=== PATIENT | male | born 1935 | race Caucasian/White ===

== ENCOUNTER 2018-02-09 20:19 | Inpatient (IN) | payer MEDICARE ==
[2018-02-09] MEDS ORDERED: Aspirin 81 mg CHEW TAB* 81 MG TAB.CHEW PO ONE (20:38)
--- NOTE | 2018-02-09 21:12 | RAD ---
Indication: Chest pain. Single frontal view of the chest performed at 2050 hours was reviewed. No prior study is available for comparison. No mediastinal shift is noted. Cardiomegaly is noted. There is likely poor inspiratory effort. Patient is status post transsternal thoracotomy. IMPRESSION: THERE MAY BE SOME POOR INSPIRATORY EFFORT WITHOUT DEFINITE EVIDENCE OF PNEUMONIA. PATIENT IS STATUS POST TRANSSTERNAL THORACOTOMY.
--- NOTE | 2018-02-09 22:07 | RAD ---
Indication: Confusion. CT of the brain was performed without IV contrast. Ventricular structures are midline. No midline shift is noted. There is central and cortical atrophy noted. There is no evidence of intracranial mass or hemorrhage. There is wedge-shaped defect in the left parietal lobe consistent with old infarct. There is no evidence of intracranial mass or hemorrhage. No other high or low density lesions are identified. Mastoid air cells and paranasal sinuses are unremarkable. Patient has had left craniotomy. IMPRESSION: No intracranial mass or hemorrhage. 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
[2018-02-09 22:15] LABS: ABS Basophils 0.1 10^3/ul (0-0.2); ABS Eosinophils 0.1 10^3/ul (0-0.6); ABS Lymphocytes 1.9 10^3/ul (1.0-4.8); ABS Monocytes 0.7 10^3/ul (0-0.8); ABS Neutrophils 3.6 10^3/ul (1.5-7.7); ABS Nucleated RBC 0 10^3/ul; Hematocrit 39 % (42-52); Hemoglobin 13.4 g/dl (14.0-18.0); Lymphocyte % 29.8 % (25-47); Mean Corpuscular HGB Conc 34 g/dl (31-36); Mean Corpuscular Hemoglobin 30 pg (27-31); Mean Corpuscular Volume 89 fL (80-94); Mean Platelet Volume 8.8 um3 (7.4-10.4); Nucleated Red Blood Cells % 0.1; Platelet Count 152 10^3/ul (150-450); Red Blood Count 4.44 10^6/ul (4.0-5.4); Red Cell Distribution Width 15 % (10.5-15); White Blood Count 6.4 10^3/ul (3.5-10.8)
[2018-02-09 22:33] LABS: EGFR Non-African American 60.6 (>60); INR 1.12 (0.77-1.02)
--- NOTE | 2018-02-10 01:59 | HP ---
H&P (Free Text) History and Physical: PCP: Mavis Maya NP Cardiology: Dr Ware in [place] Date/Time: 02/10/2018 0140 CC: chest pain HPI: Mr Patterson is an 82YO male HX DM2, HTN, HLD, CAD/3vCABG/stent x2, & bovine AVR who was playing cards last evening when he developed non-radiating substernal chest pressure entirely relieved with one of his own nitro SL and associated with SOB & sweating which prompted him to present for evaluation. PMedHx DM2 HTN HLD CAD/3vCABG/stent x2 bovine AVR CVA Ambulatory Orders Amoxicillin PO (*) [Amoxicillin 500 MG CAP*] 500 mg PO BID 02/09/18 Ascorbic Acid TAB* [Vitamin C TAB*] 500 mg PO DAILY 02/09/18 Aspirin EC TAB* [Ecotrin EC Low Dose 81 MG*] 81 mg PO DAILY 02/09/18 Atorvastatin* [Lipitor*] 20 mg PO DAILY 02/09/18 Carvedilol TAB* [Coreg TAB*] 6.25 mg PO BID 02/09/18 Insulin Detemir (NF) [Levemir (NF)] 40 unit SUBCUT BID 02/09/18 Magnesium Oxide TAB* [MagOx 400 TAB*] 400 mg PO EVERY OTHER DAY 02/09/18 Nitroglycerin TAB 0.4 MG* 0.4 mg SL Q5M PRN 02/09/18 Pantoprazole TAB (NF) [Protonix TAB (NF)] 40 mg PO DAILY 02/09/18 Ramipril CAP* [Altace CAP*] 5 mg PO DAILY 02/09/18 Tamsulosin CAP* [Flomax CAP*] 0.4 mg PO DAILY 02/09/18 glipiZIDE TAB* [Glucotrol TAB*] 5 mg PO BID 02/09/18 metFORMIN* [Glucophage 500 MG TAB *] 500 mg PO BID 02/09/18 Allergies No Known Allergies Allergy (Verified 10/27/16 11:20) PSurgHx OU cataract extractions bovine AVR appendectomy cholecystectomy craniotomy SocHx: no tobacco, occasional alcohol, no recreational drugs; lives with his ; full code status FamHx: reviewed & non-contributory ROS: as above, otherwise reviewed and all were negative vitals: Vital Signs Temp 36.6 C 02/10/18 03:29 Pulse 61 02/10/18 03:29 Resp 18 02/10/18 03:29 BP 140/61 02/10/18 03:29 Pulse Ox 98 02/10/18 03:29 Intake & Output 02/09/18 02/09/18 02/10/18 11:59 23:59 11:59 Intake Total 0 Balance 0 Weight 90.718 kg 86.137 kg Intake: Oral 0 Other: # Bowel Movements 0 # Voids 0 Constitutional: NAD, normally developed, overweight elderly white male HEENM: atraumatic; sclera/conjunctiva: anicteric/clear; hearing: moderately decreased; oropharynx: clear, mucosa moist Neck: soft tissue: non-tender; thyroid: normal Pulmonary: clear to auscultation bilaterally, good aeration, no accessory muscle use CV: RR/RR, normal S1S2, no carotid bruit, no jugular venous distention, 2+ B DP/ PT, trace BLE edema Abdominal: soft, non-distended, non-tender, no rebound/guarding/rigidity, normoactive bowel sounds, no hepatosplenomegaly or masses, no costovertebral angle tenderness Musculoskeletal: general: grossly intact, non-tender Integumental: normal appearance and texture of exposed skin Psychiatric orientation: AA&O to PPS affect: calm mood: cooperative eye contact: good content: mostly reliable responses: timely insight: fair Testing: Lab Results 02/09/18 02/09/18 02/09/18 Range/Units 22:08 22:08 22:08 WBC 6.4 (3.5-10.8) 10^3/ul RBC 4.44 (4.0-5.4) 10^6/ul Hgb 13.4 L (14.0-18.0) g/dl Hct 39 L (42-52) % MCV 89 (80-94) fL MCH 30 (27-31) pg MCHC 34 (31-36) g/dl RDW 15 (10.5-15) % Plt Count 152 (150-450) 10^3/ul MPV 8.8 (7.4-10.4) um3 Neut % (Auto) 56.7 (38-83) % Lymph % (Auto) 29.8 (25-47) % [place] % (Auto) 10.7 H (0-7) % Eos % (Auto) 2.0 (0-6) % Baso % (Auto) 0.8 (0-2) % Absolute Neuts (auto) 3.6 (1.5-7.7) 10^3/ul Absolute Lymphs (auto) 1.9 (1.0-4.8) 10^3/ul Absolute Monos (auto) 0.7 (0-0.8) 10^3/ul Absolute Eos (auto) 0.1 (0-0.6) 10^3/ul Absolute Basos (auto) 0.1 (0-0.2) 10^3/ul Absolute Nucleated RBC 0 10^3/ul Nucleated RBC % 0.1 INR (Anticoag Therapy) 1.12 H (0.77-1.02) APTT (26.0-36.3) seconds Sodium 134 L (139-145) mmol/L Potassium 4.1 (3.5-5.0) mmol/L Chloride 106 (101-111) mmol/L Carbon Dioxide 20 L (22-32) mmol/L Anion Gap 8 (2-11) mmol/L BUN 26 H (6-24) mg/dL Creatinine 1.16 (0.67-1.17) mg/dL Est GFR ( Amer) 77.9 (>60) Est GFR (Non-Af Amer) 60.6 (>60) BUN/Creatinine Ratio 22.4 H (8-20) Glucose 142 H (70-100) mg/dL Lactic Acid (0.5-2.0) mmol/L Calcium 9.2 (8.6-10.3) mg/dL Total Bilirubin 0.70 (0.2-1.0) mg/dL AST 17 (13-39) U/L ALT 19 (7-52) U/L Alkaline Phosphatase 75 (34-104) U/L Troponin I 0.00 (<0.04) ng/mL Total Protein 6.5 (6.4-8.9) g/dL Albumin 3.6 (3.2-5.2) g/dL Globulin 2.9 (2-4) g/dL Albumin/Globulin Ratio 1.2 (1-3) 02/09/18 02/10/18 02/10/18 Range/Units 22:08 01:28 02:16 WBC (3.5-10.8) 10^3/ul RBC (4.0-5.4) 10^6/ul Hgb (14.0-18.0) g/dl Hct (42-52) % MCV (80-94) fL MCH (27-31) pg MCHC (31-36) g/dl RDW (10.5-15) % Plt Count (150-450) 10^3/ul MPV (7.4-10.4) um3 Neut % (Auto) (38-83) % Lymph % (Auto) (25-47) % [place] % (Auto) (0-7) % Eos % (Auto) (0-6) % Baso % (Auto) (0-2) % Absolute Neuts (auto) (1.5-7.7) 10^3/ul Absolute Lymphs (auto) (1.0-4.8) 10^3/ul Absolute Monos (auto) (0-0.8) 10^3/ul Absolute Eos (auto) (0-0.6) 10^3/ul Absolute Basos (auto) (0-0.2) 10^3/ul Absolute Nucleated RBC 10^3/ul Nucleated RBC % INR (Anticoag Therapy) (0.77-1.02) APTT (26.0-36.3) seconds Sodium (139-145) mmol/L Potassium (3.5-5.0) mmol/L Chloride (101-111) mmol/L Carbon Dioxide (22-32) mmol/L Anion Gap (2-11) mmol/L BUN (6-24) mg/dL Creatinine (0.67-1.17) mg/dL Est GFR ( Amer) (>60) Est GFR (Non-Af Amer) (>60) BUN/Creatinine Ratio (8-20) Glucose (70-100) mg/dL Lactic Acid 2.2 H* (0.5-2.0) mmol/L Calcium (8.6-10.3) mg/dL Total Bilirubin (0.2-1.0) mg/dL AST (13-39) U/L ALT (7-52) U/L Alkaline Phosphatase (34-104) U/L Troponin I 0.00 0.00 (<0.04) ng/mL Total Protein (6.4-8.9) g/dL Albumin (3.2-5.2) g/dL Globulin (2-4) g/dL Albumin/Globulin Ratio (1-3) 02/10/18 02/10/18 02/10/18 Range/Units 02:16 04:47 04:47 WBC (3.5-10.8) 10^3/ul RBC (4.0-5.4) 10^6/ul Hgb (14.0-18.0) g/dl Hct (42-52) % MCV (80-94) fL MCH (27-31) pg MCHC (31-36) g/dl RDW (10.5-15) % Plt Count (150-450) 10^3/ul MPV (7.4-10.4) um3 Neut % (Auto) (38-83) % Lymph % (Auto) (25-47) % [place] % (Auto) (0-7) % Eos % (Auto) (0-6) % Baso % (Auto) (0-2) % Absolute Neuts (auto) (1.5-7.7) 10^3/ul Absolute Lymphs (auto) (1.0-4.8) 10^3/ul Absolute Monos (auto) (0-0.8) 10^3/ul Absolute Eos (auto) (0-0.6) 10^3/ul Absolute Basos (auto) (0-0.2) 10^3/ul Absolute Nucleated RBC 10^3/ul Nucleated RBC % INR (Anticoag Therapy) (0.77-1.02) APTT 33.8 (26.0-36.3) seconds Sodium 135 L (139-145) mmol/L Potassium 4.1 (3.5-5.0) mmol/L Chloride 107 (101-111) mmol/L Carbon Dioxide 21 L (22-32) mmol/L Anion Gap 7 (2-11) mmol/L BUN 26 H (6-24) mg/dL Creatinine 1.03 (0.67-1.17) mg/dL Est GFR ( Amer) 89.4 (>60) Est GFR (Non-Af Amer) 69.5 (>60) BUN/Creatinine Ratio 25.2 H (8-20) Glucose 86 (70-100) mg/dL Lactic Acid 2.0 (0.5-2.0) mmol/L Calcium 9.0 (8.6-10.3) mg/dL Total Bilirubin (0.2-1.0) mg/dL AST (13-39) U/L ALT (7-52) U/L Alkaline Phosphatase (34-104) U/L Troponin I 0.00 (<0.04) ng/mL Total Protein (6.4-8.9) g/dL Albumin (3.2-5.2) g/dL Globulin (2-4) g/dL Albumin/Globulin Ratio (1-3) ECG, personally reviewed: not available in computer, frequent PVCs CXR, personally reviewed: IMPRESSION: THERE MAY BE SOME POOR INSPIRATORY EFFORT WITHOUT DEFINITE EVIDENCE OF PNEUMONIA. PATIENT IS STATUS POST TRANSSTERNAL THORACOTOMY. CT brain WO, personally reviewed: IMPRESSION: No intracranial mass or hemorrhage. 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 Impression: 82M HX CVA, CAD/3vCABG/stent x2, HTN, HLD, DM2 who presents with typical chest pain relieved by nitro SL x1 DIAGNOSIS & PLAN Primary chest pain r/o ACS HX CAD/3vCABG/stent x2 : telemetry : aspirin : no beta vasiliy 2nd borderline bradycardia : trend troponin : consider stress test in AM vs outpatient follow up with primary cardiology : supplemental oxygen : supportive care Secondary DM2 : check A1c : basal/correctional insulin HTN : review meds once reconciled HLD : review meds once reconciled bovine AVR : no acute issues CVA : review meds once reconciled Admission Rational: observation for r/o ACS DVTp: heparin SQ Code Status: full HCP:
[2018-02-10] MEDS ORDERED: Albuterol 2.5 MG/3 ML NEB.SOL* (0.083%) INH PRN (02:02)
[2018-02-10] MEDS ORDERED: CMCS: Melatonin (NF) 3 MG TAB PO PRN (02:02)
[2018-02-10] MEDS ORDERED: Morphine VIAL* 4 MG/ML VIAL (1 ml vial) IV PRN (02:02)
[2018-02-10] MEDS ORDERED: Acetaminophen TAB* 325 MG PO PRN (02:02)
[2018-02-10] MEDS ORDERED: Ondansetron ODT TAB* 4 MG PO PRN (02:03)
--- NOTE | 2018-02-10 02:53 | ED ---
Jovany Worley Angela, scribed for Henrry Pedroza MD on 02/09/18 at 2039 . HPI Chest Pain - HPI Summary HPI Summary: This pt is a 82 y/o male presenting to [facility] via EMS for chest pain today. Pt reports he was playing cards when he had sudden onset of chest pain at around 19 :30. He notes associated symptoms of SOB and diaphoresis. Pt states he took nitroglycerin 0.5 mg with relief. He notes his chest pain resolved after nitroglycerin. Pt currently denies any symptoms, denies chest pain. He reports it is out of the ordinary that he takes nitroglycerin. For the past 3 days pt has been more confused according to his . Per , pt passed out in [place] a few weeks ago. Pt's medications have been changed a couple of times in the last 3 weeks, per . 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 Pt lives in [place]. PMHx includes triple bypass, s/p 2 stents (done in [facility]), HTN. denies hx of OH. - History of Current Complaint Time Seen by Provider: 02/09/18 20:28 Hx Obtained From: Patient, Family/Transformation Analyst - Onset/Duration: Started Hours Ago, Atraumatic, Resolved Timing: Lasting Hours Current Severity: None Pain Intensity: 0 Pain Scale Used: 0-10 Numeric Chest Pain Location: Diffuse Chest Pain Radiates: No Aggravating Factor(s): Nothing Alleviating Factor(s): NTG 123 Associated Signs and Symptoms: Positive: Chest Pain, Shortness of Breath, Diaphoresis, Other: - POS: confusion - Allergy/Home Medications Allergies/Adverse Reactions: Allergies Allergy/AdvReac Type Severity Reaction Status Date / Time No Known Allergies Allergy Verified 10/27/16 11:20 Home Medications: Home Medications Amoxicillin PO (*) [Amoxicillin 500 MG CAP*] 500 mg PO BID 02/09/18 [History Confirmed 02/09/18] Ascorbic Acid TAB* [Vitamin C TAB*] 500 mg PO DAILY 02/09/18 [History Confirmed 02/09/18] Aspirin EC TAB* [Ecotrin EC Low Dose 81 MG*] 81 mg PO DAILY 02/09/18 [History Confirmed 02/09/18] Atorvastatin* [Lipitor*] 20 mg PO DAILY 02/09/18 [History Confirmed 02/09/18] Carvedilol TAB* [Coreg TAB*] 6.25 mg PO BID 02/09/18 [History Confirmed 02/09/18 ] Insulin Detemir (NF) [Levemir (NF)] 40 unit SUBCUT BID 02/09/18 [History Confirmed 02/09/18] Magnesium Oxide TAB* [MagOx 400 TAB*] 400 mg PO EVERY OTHER DAY 02/09/18 [ History Confirmed 02/09/18] Nitroglycerin TAB 0.4 MG* 0.4 mg SL Q5M PRN 02/09/18 [History Confirmed 02/09/18 ] Pantoprazole TAB (NF) [Protonix TAB (NF)] 40 mg PO DAILY 02/09/18 [History Confirmed 02/09/18] Ramipril CAP* [Altace CAP*] 5 mg PO DAILY 02/09/18 [History Confirmed 02/09/18] Tamsulosin CAP* [Flomax CAP*] 0.4 mg PO DAILY 02/09/18 [History Confirmed ] glipiZIDE TAB* [Glucotrol TAB*] 5 mg PO BID 02/09/18 [History Confirmed 02/09/18 ] metFORMIN* [Glucophage 500 MG TAB *] 500 mg PO BID 02/09/18 [History Confirmed 02/09/18] PMH/Surg Hx/FS Hx/Imm Hx Endocrine/Hematology History: Reports: Hx Diabetes Cardiovascular History: Reports: Hx Hypertension, Other Cardiovascular Problems/ Disorders - hyperlipidemia, triple bypass, s/p 2 stents Neurological History: Reports: Hx Transient Ischemic Attacks (TIA) - Surgical History Surgery Procedure, Year, and Place: Cholecystectomy. Triple bypass Infectious Disease History: Denies: Traveled Outside the [place] in Last 30 Days - Family History Known Family History: Positive: Cardiac Disease - Social History Alcohol Use: Rare Substance Use Type: Reports: None Smoking Status (MU): Former Smoker Review of Systems Positive: Skin Diaphoresis - now resolved. Negative: Fever Positive: Chest Pain - now resolved Positive: Shortness Of Breath - now resolved Neurological: Other - POS: confusion All Other Systems Reviewed And Are Negative: Yes Physical Exam - Summary Physical Exam Summary: Appearance: Well appearing, no pain distress Skin: warm, dry, reflects adequate perfusion Head/face: normal Eyes: EOMI, KURT ENT: normal. Mucous membranes are moist. Neck: supple, non-tender Respiratory: CTA, breath sounds present Chest: Scar in the mid chest Cardiovascular: Regular with occasional irregularity with ectopy noted on monitor, no murmur, pulses symmetrical Abdomen: non-tender, soft Bowel: present Musculoskeletal: normal, strength/ROM intact. No LE edema. Neuro: pt is alert and oriented to person and place, not to time, sensory motor intact, slowly answering questions. No focal deficits. Triage Information Reviewed: Yes Vital Signs On Initial Exam: Initial Vitals Temp Pulse Resp BP Pulse Ox 97.9 F 67 20 144/58 96 02/09/18 20:32 02/09/18 20:32 02/09/18 20:32 02/09/18 20:32 02/09/18 20:32 Vital Signs Reviewed: Yes Diagnostics - Vital Signs Vital Signs Temp Pulse Resp BP Pulse Ox 02/10/18 02:00 68 20 95 02/10/18 01:00 67 23 93 02/10/18 00:41 62 13 95 02/10/18 00:00 67 18 92 02/09/18 23:00 58 15 94 02/09/18 22:00 60 21 98 02/09/18 21:57 58 20 103/69 96 02/09/18 21:27 68 19 119/61 95 02/09/18 21:00 68 24 92 02/09/18 20:57 63 22 131/65 94 02/09/18 20:47 98 02/09/18 20:32 97.9 F 67 20 144/58 96 02/09/18 20:28 69 17 144/58 97 02/09/18 20:26 70 18 94 - Laboratory Lab Results: Lab Results 02/09/18 02/09/18 02/09/18 Range/Units 22:08 22:08 22:08 WBC 6.4 (3.5-10.8) 10^3/ul RBC 4.44 (4.0-5.4) 10^6/ul Hgb 13.4 L (14.0-18.0) g/dl Hct 39 L (42-52) % MCV 89 (80-94) fL MCH 30 (27-31) pg MCHC 34 (31-36) g/dl RDW 15 (10.5-15) % Plt Count 152 (150-450) 10^3/ul MPV 8.8 (7.4-10.4) um3 Neut % (Auto) 56.7 (38-83) % Lymph % (Auto) 29.8 (25-47) % [place] % (Auto) 10.7 H (0-7) % Eos % (Auto) 2.0 (0-6) % Baso % (Auto) 0.8 (0-2) % Absolute Neuts (auto) 3.6 (1.5-7.7) 10^3/ul Absolute Lymphs (auto) 1.9 (1.0-4.8) 10^3/ul Absolute Monos (auto) 0.7 (0-0.8) 10^3/ul Absolute Eos (auto) 0.1 (0-0.6) 10^3/ul Absolute Basos (auto) 0.1 (0-0.2) 10^3/ul Absolute Nucleated RBC 0 10^3/ul Nucleated RBC % 0.1 INR (Anticoag Therapy) 1.12 H (0.77-1.02) Sodium 134 L (139-145) mmol/L Potassium 4.1 (3.5-5.0) mmol/L Chloride 106 (101-111) mmol/L Carbon Dioxide 20 L (22-32) mmol/L Anion Gap 8 (2-11) mmol/L BUN 26 H (6-24) mg/dL Creatinine 1.16 (0.67-1.17) mg/dL Est GFR ( Amer) 77.9 (>60) Est GFR (Non-Af Amer) 60.6 (>60) BUN/Creatinine Ratio 22.4 H (8-20) Glucose 142 H (70-100) mg/dL Lactic Acid (0.5-2.0) mmol/L Calcium 9.2 (8.6-10.3) mg/dL Total Bilirubin 0.70 (0.2-1.0) mg/dL AST 17 (13-39) U/L ALT 19 (7-52) U/L Alkaline Phosphatase 75 (34-104) U/L Troponin I 0.00 (<0.04) ng/mL Total Protein 6.5 (6.4-8.9) g/dL Albumin 3.6 (3.2-5.2) g/dL Globulin 2.9 (2-4) g/dL Albumin/Globulin Ratio 1.2 (1-3) 02/09/18 02/10/18 02/10/18 Range/Units 22:08 01:28 02:16 WBC (3.5-10.8) 10^3/ul RBC (4.0-5.4) 10^6/ul Hgb (14.0-18.0) g/dl Hct (42-52) % MCV (80-94) fL MCH (27-31) pg MCHC (31-36) g/dl RDW (10.5-15) % Plt Count (150-450) 10^3/ul MPV (7.4-10.4) um3 Neut % (Auto) (38-83) % Lymph % (Auto) (25-47) % [place] % (Auto) (0-7) % Eos % (Auto) (0-6) % Baso % (Auto) (0-2) % Absolute Neuts (auto) (1.5-7.7) 10^3/ul Absolute Lymphs (auto) (1.0-4.8) 10^3/ul Absolute Monos (auto) (0-0.8) 10^3/ul Absolute Eos (auto) (0-0.6) 10^3/ul Absolute Basos (auto) (0-0.2) 10^3/ul Absolute Nucleated RBC 10^3/ul Nucleated RBC % INR (Anticoag Therapy) (0.77-1.02) Sodium (139-145) mmol/L Potassium (3.5-5.0) mmol/L Chloride (101-111) mmol/L Carbon Dioxide (22-32) mmol/L Anion Gap (2-11) mmol/L BUN (6-24) mg/dL Creatinine (0.67-1.17) mg/dL Est GFR ( Amer) (>60) Est GFR (Non-Af Amer) (>60) BUN/Creatinine Ratio (8-20) Glucose (70-100) mg/dL Lactic Acid 2.2 H* (0.5-2.0) mmol/L Calcium (8.6-10.3) mg/dL Total Bilirubin (0.2-1.0) mg/dL AST (13-39) U/L ALT (7-52) U/L Alkaline Phosphatase (34-104) U/L Troponin I 0.00 0.00 (<0.04) ng/mL Total Protein (6.4-8.9) g/dL Albumin (3.2-5.2) g/dL Globulin (2-4) g/dL Albumin/Globulin Ratio (1-3) 05/18/18 Range/Units 02:16 WBC (3.5-10.8) 10^3/ul RBC (4.0-5.4) 10^6/ul Hgb (14.0-18.0) g/dl Hct (42-52) % MCV (80-94) fL MCH (27-31) pg MCHC (31-36) g/dl RDW (10.5-15) % Plt Count (150-450) 10^3/ul MPV (7.4-10.4) um3 Neut % (Auto) (38-83) % Lymph % (Auto) (25-47) % [place] % (Auto) (0-7) % Eos % (Auto) (0-6) % Baso % (Auto) (0-2) % Absolute Neuts (auto) (1.5-7.7) 10^3/ul Absolute Lymphs (auto) (1.0-4.8) 10^3/ul Absolute Monos (auto) (0-0.8) 10^3/ul Absolute Eos (auto) (0-0.6) 10^3/ul Absolute Basos (auto) (0-0.2) 10^3/ul Absolute Nucleated RBC 10^3/ul Nucleated RBC % INR (Anticoag Therapy) (0.77-1.02) Sodium (139-145) mmol/L Potassium (3.5-5.0) mmol/L Chloride (101-111) mmol/L Carbon Dioxide (22-32) mmol/L Anion Gap (2-11) mmol/L BUN (6-24) mg/dL Creatinine (0.67-1.17) mg/dL Est GFR ( Amer) (>60) Est GFR (Non-Af Amer) (>60) BUN/Creatinine Ratio (8-20) Glucose (70-100) mg/dL Lactic Acid 2.0 (0.5-2.0) mmol/L Calcium (8.6-10.3) mg/dL Total Bilirubin (0.2-1.0) mg/dL AST (13-39) U/L ALT (7-52) U/L Alkaline Phosphatase (34-104) U/L Troponin I (<0.04) ng/mL Total Protein (6.4-8.9) g/dL Albumin (3.2-5.2) g/dL Globulin (2-4) g/dL Albumin/Globulin Ratio (1-3) Result Diagrams: 02/09/18 22:08 02/09/18 22:08 Lab Statement: Any lab studies that have been ordered have been reviewed, and results considered in the medical decision making process. - Radiology Chest XR Xray Interpretation: Positive (See Comments) - IMPRESSION: There may be some poor inspiratory effort without definite evidence of pneumonia. Patient is status post transsternal thoracotomy. Dr. Pedroza has reviewed this radiology report. Radiology Interpretation Completed By: Radiologist - CT Brain CT CT Interpretation: No Acute Changes - IMPRESSION: No intracranial mass or hemorrhage. 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 Dr. Pedroza has reviewed this radiology report. CT Interpretation Completed By: Radiologist - EKG 20:32 Cardiac Rate: NL - at 65 bpm EKG Rhythm: Sinus Rhythm ST Segment: Non-Specific Ectopy: PVCs - frequent EKG Interpretation: Normal axis. Chest Pain Course/Dx - Course Course Of Treatment: Patient with confusion over the last several days. No known precipitating cause. Strong history for coronary artery disease including requiring stenting 2 and 3 vessel coronary artery bypass. Chest pain at rest that was relieved with nitroglycerin. Patient has no history of angina. Aspirin given. Hospitalist contacted after negative troponin. His having a lot of PVCs. Admit for further. - Chest Pain Differential Diagnosis/HQI/PQRI: Acute OH, ACS, CHF, Chest Wall, GI Disease, Lower Respiratory Infection, Pulmonary Edema, Pulmonary Embolism - Diagnoses Provider Diagnoses: Chest pain at rest, Coronary artery disease, Delirium, PVCs (premature ventricular contractions) - Provider Notifications Discussed Care Of Patient With: Iggy Logan Time Discussed With Above Provider: 22:45 Instructed by Provider To: Admit As Inpatient Discharge - Sign-Out/Discharge Documenting (check all that apply): Discharge/Admit/Transfer - Admit - Discharge Plan Condition: Improved Disposition: ADMITTED TO [facility] Referrals: Diallo Maya NP [Primary Care Provider] - - Billing Disposition and Condition Condition: IMPROVED Disposition: [facility] The documentation as recorded by the Jovany rosa Angela accurately reflects the service I personally performed and the decisions made by , Henrry Pedroza MD.
[2018-02-10 05:10] LABS: EGFR Non-African American 69.5 (>60)
[2018-02-10] MEDS: Omeprazole CAP* 20 MG PO SCH (05:21)
[2018-02-10] MEDS: NS 0.9% 1000 ML* 1,000 ML IV SCH (05:21)
[2018-02-10] MEDS: Insulin LISPRO* 1 UNITS UNIT SUBCUT SCH ×4 (08:22→21:52)
[2018-02-10] MEDS: Docusate CAP* 100 MG PO SCH ×2 (11:26→21:50)
--- NOTE | 2018-02-10 14:40 | PN ---
Subjective Date of Service: 02/10/18 Interval History: Patient seen and examined. Per , patient seems more confused this last week. Patient points to his abdomen and epigastrum when asked to point to where his chest pain was prior to admission. States he felt "nauseous" and "not good" , had felt sweaty and dizzy for several days. Per , patient also had similar episode when they were in [place] a few months ago when he was hospitalized for 3 days with a negative cardiac workup as per . She also states he was supposed to have MRI of the brain at that time but the hospital was "too busy" and did not complete the test. And that he had an ECHO two weeks ago and a holtor monitor that she does not know the results of. Patient states at this time, he is chest pain free, no SOB, has not been OOB yet. Objective Active Medications: Acetaminophen (Tylenol Tab*) 650 mg PO Q6H PRN PRN Reason: FEVER/PAIN Albuterol (Ventolin 2.5 Mg/3 Ml Neb.Jada*) 2.5 mg INH Q2H PRN PRN Reason: SOB/WHEEZING Aspirin (Aspirin Ec Tab*) 81 mg PO DAILY [facility] Docusate Sodium (Colace Cap*) 200 mg PO BID [facility] Last Admin: 02/10/18 11:26 Dose: Not Given Heparin Sodium (Porcine) (Heparin Vial(*)) 5,000 units SUBCUT Q8HR [facility] Sodium Chloride (Ns 0.9% 1000 Ml*) 1,000 mls @ 50 mls/hr IV PER RATE [facility] Last Admin: 02/10/18 05:21 Dose: 50 mls/hr Insulin Glargine (Lantus(*)) 21 units 0.24 units/kg (21 units) SUBCUT 2100 [facility] Stop: 02/11/18 20:00 Insulin Human Lispro (Humalog*) 0 units SUBCUT Q4H [facility] PRN Reason: Protocol Last Admin: 02/10/18 12:05 Dose: Not Given Melatonin (Melatonin (Nf)) 3 mg PO BEDTIME PRN; Protocol PRN Reason: Sleep Morphine Sulfate (Morphine Vial*) 2 mg IV Q4H PRN PRN Reason: PAIN Omeprazole (Prilosec Cap*) 20 mg PO DAILY@0600 [facility] Last Admin: 02/10/18 05:21 Dose: 20 mg Ondansetron HCl (Zofran Odt Tab*) 4 mg PO Q6H PRN PRN Reason: n/v Oxygen Devices in Use Now: None Appearance: Alert, periods of confusion Eyes: PERRLA Ears/Nose/Mouth/Throat: Mucous Membranes Moist Neck: NL Appearance and Movements; NL JVP, Trachea Midline Respiratory: Symmetrical Chest Expansion and Respiratory Effort, Clear to Auscultation Cardiovascular: NL Sounds; No Murmurs; No JVD, - - irregular, PVCs and bigeminy on telemetry, no VT Abdominal: NL Sounds; No Tenderness; No Distention Extremities: No Edema, No Clubbing, Cyanosis Skin: No Rash or Ulcers Neurological: Alert and Oriented x 3, - - per sife, periods of confusion for the last several days Nutrition: Taking PO's Result Diagrams: 02/09/18 22:08 02/10/18 04:47 Additional Lab and Data: Diagnostic Imaging: Patient Name: BRITT REYES Medical Record#: [id number] Ordering Physician: Henrry Pedroza MD Acct.#: [id number] : 1935 Age: 82 Sex: M Location: EMERGENCY DEPARTMENT Exam Date: 02/09/182038 ADM Status: REG ER Order Information: CT BRAIN WO Accession Number: [id number] CPT: 31685 Indication: Confusion. CT of the brain was performed without IV contrast. Ventricular structures are midline. No midline shift is noted. There is central and cortical atrophy noted. There is no evidence of intracranial mass or hemorrhage. There is wedge-shaped defect in the left parietal lobe consistent with old infarct. There is no evidence of intracranial mass or hemorrhage. No other high or low density lesions are identified. Mastoid air cells and paranasal sinuses are unremarkable. Patient has had left craniotomy. IMPRESSION: No intracranial mass or hemorrhage. 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 <Electronically signed by Tanvi Rivero MD in [place]> 02/09/182202 Dictated By: Tanvi S Rivero MD Dictated Date/Time: 02/09/182202 Transcribed Date/Time: 02/09/182152 Copy to: Assess/Plan/Problems-Billing Assessment: This is an 82 year old male patient with history of CABG, TAVR, HTN, DM and hemorrhagic CVA that presented to the ER with complaint of dizziness and near syncope, nausea and atypical chest pain for which he took NTGx2 at home that has been admitted for same. - Patient Problems (1) Near syncope Comment: - With associated epigastric pain, nausea and diaphoresis - Call to Dr. Karina Ware in [place] (primary ruby software developer) for records of ECHO, Holter, TAVR and last EKG - CT head as above - Will MRI brain, as patient had syncopal episode 2 months ago and did not have MRI which was recommended at that time - Will evaluate records faxed by Dr. Ware's office and discuss with cardiology tomorrow, do not feel stress test is indicated at this time but will defer to cardiology recs. (2) History of coronary artery bypass graft Comment: - Continue coreg BID (3) S/P TAVR (transcatheter aortic valve replacement) Code(s): Z95.2 - PRESENCE OF PROSTHETIC HEART VALVE SNOMED Code(s): 9125563744630 Comment: - Pending records from Dr. Ware (4) History of intracranial hemorrhage Code(s): Z86.79 - PERSONAL HISTORY OF OTHER DISEASES OF THE CIRCULATORY SYSTEM SNOMED Code(s): 121704800 Comment: - With syncope, confusion and dizziness at this admission - CT head above, will MRI brain today (5) Hypertension Code(s): I10 - ESSENTIAL (PRIMARY) HYPERTENSION SNOMED Code(s): 65262568 Comment: - Continue ramipril (6) DVT prophylaxis Code(s): JAY8202 - SNOMED Code(s): 621912169 Comment: - HSQ (7) Full code status Code(s): Z78.9 - OTHER SPECIFIED HEALTH STATUS SNOMED Code(s): 544922888 Status and Disposition: Remain inpatient for MRI and continue cardiac work-up after documents received from [place]. May consult cardio in the morning.
--- NOTE | 2018-02-10 15:29 | RAD ---
HISTORY: Near syncope, history of stroke with ICH and craniotomy COMPARISONS: February 09, 2018 PET/CT TECHNIQUE: The following sequences were obtained of the head: Sagittal T1-weighted images, axial T2-weighted images, axial FLAIR images, axial susceptibility weighted images, axial T1-weighted images. Additionally, axial diffusion-weighted images were obtained with calculated apparent diffusion coefficients. FINDINGS: This study is somewhat technically limited. HEMORRHAGE/INFARCT: There is no hemorrhage or acute infarct. MASSES/SHIFT: There is no mass or shift. EXTRA-AXIAL SPACES/MENINGES: There are no extra-axial fluid collections. SULCI AND VENTRICLES: There is diffuse and proportional enlargement of the sulci and ventricles. CEREBRUM: There is left anterior parietal encephalomalacia. There is right anterior temporal encephalomalacia. There are scattered small foci of elevated T2/FLAIR signal in the periventricular and subcortical white matter. BRAINSTEM: There are no focal parenchymal abnormalities. CEREBELLUM: There is a chronic lacunar infarct of the right inferior cerebellum. The cerebellar tonsils are normal in size and position. SELLA: The sella is normal. PINEAL: The pineal region is clear. CP ANGLE/TEMPORAL BONES: The labyrinthine structures are grossly normal. VESSELS: Normal flow-voids are noted within the visualized vertebral vasculature. DIFFUSION ABNORMALITIES: There are no diffusion abnormalities. PARANASAL SINUSES/MASTOIDS: The paranasal sinuses are clear. ORBITS: The orbits are unremarkable. BONES AND SOFT TISSUE: There is postsurgical change to the left parietal skull. OTHER: None IMPRESSION: 1. 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 2. NO RESTRICTED DIFFUSION TO SUGGEST ACUTE INFARCT..
[2018-02-10] MEDS ORDERED: Magnesium Sulfate 1 GM IV* 1 GM/100 ML BAG IV ONE (16:00)
[2018-02-10] MEDS ORDERED: Insulin GLARGINE(*) 1 UNITS UNIT SUBCUT SCH (21:00)
[2018-02-10] MEDS: glipiZIDE TAB* 5 MG PO SCH (21:50)
[2018-02-10] MEDS: Carvedilol TAB* 6.25 MG PO SCH (21:50)
[2018-02-11] MEDS: Insulin LISPRO* 1 UNITS UNIT SUBCUT SCH ×6 (00:47→21:55)
[2018-02-11] MEDS: NS 0.9% 1000 ML* 1,000 ML IV SCH (05:38)
[2018-02-11] MEDS: Heparin VIAL(*) 5000 UNITS/ML VIAL (FIVE THOUSAND) SUBCUT SCH ×3 (05:39→21:56)
[2018-02-11] MEDS: Omeprazole CAP* 20 MG PO SCH (05:44)
[2018-02-11] MEDS: Ascorbic Acid TAB* 500 MG PO SCH (09:53)
[2018-02-11] MEDS: Aspirin EC TAB* 81 MG TAB.EC PO SCH (09:54)
[2018-02-11] MEDS: Atorvastatin* 20 MG TAB PO SCH (09:54)
[2018-02-11] MEDS: Carvedilol TAB* 6.25 MG PO SCH ×2 (09:54→21:57)
[2018-02-11] MEDS: Ramipril CAP* 5 MG PO SCH (09:55)
[2018-02-11] MEDS: Docusate CAP* 100 MG PO SCH ×2 (09:55→21:57)
[2018-02-11] MEDS: Tamsulosin CAP* 0.4 MG PO SCH (09:56)
[2018-02-11] MEDS: glipiZIDE TAB* 5 MG PO SCH ×2 (10:45→21:57)
[2018-02-11] MEDS ORDERED: Magnesium Sulfate 2 GM IV* 2 GM/50 ML BAG IVPB ONE (10:49)
--- NOTE | 2018-02-11 16:01 | PN ---
Subjective Date of Service: 02/11/18 Interval History: Patient seen and examined. No acute overnight events. Patient is alert, but does seem to answer questions appropriately. For example, when asked if his is coming to visit, he states "Why do I give a shit?" and when asked about pain, he made a hand signal that didn't make sense. He can otherwise carry on a conversation and make his needs known but his behavior does seem odd. He denies fever or chills, no headache, no chest pain that I can ascertain. Objective Active Medications: Acetaminophen (Tylenol Tab*) 650 mg PO Q6H PRN PRN Reason: FEVER/PAIN Albuterol (Ventolin 2.5 Mg/3 Ml Neb.Jada*) 2.5 mg INH Q2H PRN PRN Reason: SOB/WHEEZING Ascorbic Acid (Vitamin C Tab*) 500 mg PO DAILY [facility] Last Admin: 02/11/18 09:53 Dose: 500 mg Aspirin (Aspirin Ec Tab*) 81 mg PO DAILY [facility] Last Admin: 02/11/18 09:54 Dose: 81 mg Atorvastatin Calcium (Lipitor*) 20 mg PO DAILY [facility] Last Admin: 02/11/18 09:54 Dose: 20 mg Carvedilol (Coreg Tab*) 6.25 mg PO BID [facility] Last Admin: 02/11/18 09:54 Dose: 6.25 mg Docusate Sodium (Colace Cap*) 200 mg PO BID [facility] Last Admin: 02/11/18 09:55 Dose: 200 mg Glipizide (Glucotrol Tab*) 5 mg PO BID [facility] Last Admin: 02/11/18 10:45 Dose: 5 mg Heparin Sodium (Porcine) (Heparin Vial(*)) 5,000 units SUBCUT Q8HR [facility] Last Admin: 02/11/18 13:05 Dose: 5,000 units Sodium Chloride (Ns 0.9% 1000 Ml*) 1,000 mls @ 50 mls/hr IV PER RATE [facility] Last Admin: 02/11/18 05:38 Dose: 50 mls/hr Insulin Glargine (Lantus(*)) 21 units 0.24 units/kg (21 units) SUBCUT 2100 [facility] Stop: 02/11/18 20:00 Last Admin: 02/10/18 21:52 Dose: 21 units Insulin Human Lispro (Humalog*) 0 units SUBCUT Q4H [facility] PRN Reason: Protocol Last Admin: 02/11/18 13:06 Dose: 1 units Magnesium Oxide (Magox 400 Tab*) 400 mg PO EVERY OTHER DAY [facility] Melatonin (Melatonin (Nf)) 3 mg PO BEDTIME PRN; Protocol PRN Reason: Sleep Morphine Sulfate (Morphine Vial*) 2 mg IV Q4H PRN PRN Reason: PAIN Omeprazole (Prilosec Cap*) 20 mg PO DAILY@0600 [facility] Last Admin: 02/11/18 05:44 Dose: 20 mg Ondansetron HCl (Zofran Odt Tab*) 4 mg PO Q6H PRN PRN Reason: n/v Last Admin: 02/11/18 13:14 Dose: 4 mg Ramipril (Altace Cap*) 5 mg PO DAILY [facility] Last Admin: 02/11/18 09:55 Dose: 5 mg Tamsulosin HCl (Flomax Cap*) 0.4 mg PO DAILY [facility] Last Admin: 02/11/18 09:56 Dose: 0.4 mg Vital Signs - 8 hr 02/11/18 02/11/18 02/11/18 08:00 08:29 11:06 Temperature 98.5 F 98.7 F Pulse Rate 68 62 Respiratory 18 18 16 Rate Blood Pressure 160/78 152/51 (mmHg) O2 Sat by Pulse 100 Oximetry Oxygen Devices in Use Now: None Appearance: Alert, NAD Ears/Nose/Mouth/Throat: NL Teeth, Lips, Gums, Mucous Membranes Moist Neck: NL Appearance and Movements; NL JVP, Trachea Midline Respiratory: Symmetrical Chest Expansion and Respiratory Effort, Clear to Auscultation Cardiovascular: NL Sounds; No Murmurs; No JVD, No Edema Abdominal: NL Sounds; No Tenderness; No Distention Extremities: No Edema Skin: No Rash or Ulcers Neurological: Alert and Oriented x 3, NL Gait Nutrition: Taking PO's Result Diagrams: 02/09/18 22:08 02/10/18 04:47 Additional Lab and Data: Diagnostic Imaging: MRI BRAIN: Patient Name: BRITT REYES Medical Record#: [id number] Ordering Physician: Cristina Meier NP Acct.#: [id number] : 1935 Age: 82 Sex: M Location: [address] [place] [address]/TELEMETRY Exam Date: 02/10/18 1220 ADM Status: ADM IN Order Information: MRI BRAIN W/O Accession Number: [id number] CPT: 45966 HISTORY: Near syncope, history of stroke with ICH and craniotomy COMPARISONS: February 09, 2018 PET/CT TECHNIQUE: The following sequences were obtained of the head: Sagittal T1- weighted images, axial T2-weighted images, axial FLAIR images, axial susceptibility weighted images, axial T1-weighted images. Additionally, axial diffusion-weighted images were obtained with calculated apparent diffusion coefficients. FINDINGS: This study is somewhat technically limited. HEMORRHAGE/INFARCT: There is no hemorrhage or acute infarct. MASSES/SHIFT: There is no mass or shift. EXTRA-AXIAL SPACES/MENINGES: There are no extra-axial fluid collections. SULCI AND VENTRICLES: There is diffuse and proportional enlargement of the sulci and ventricles. CEREBRUM: There is left anterior parietal encephalomalacia. There is right anterior temporal encephalomalacia. There are scattered small foci of elevated T2/FLAIR signal in the periventricular and subcortical white matter. BRAINSTEM: There are no focal parenchymal abnormalities. CEREBELLUM: There is a chronic lacunar infarct of the right inferior cerebellum. The cerebellar tonsils are normal in size and position. SELLA: The sella is normal. PINEAL: The pineal region is clear. CP ANGLE/TEMPORAL BONES: The labyrinthine structures are grossly normal. VESSELS: Normal flow-voids are noted within the visualized vertebral vasculature. DIFFUSION ABNORMALITIES: There are no diffusion abnormalities. PARANASAL SINUSES/MASTOIDS: The paranasal sinuses are clear. ORBITS: The orbits are unremarkable. BONES AND SOFT TISSUE: There is postsurgical change to the left parietal skull. OTHER: None IMPRESSION: 1. 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 2. NO RESTRICTED DIFFUSION TO SUGGEST ACUTE INFARCT.. CT BRAIN: Patient Name: BRITT REYES Medical Record#: [id number] Ordering Physician: Henrry Pedroza MD Acct.#: [id number] : 1935 Age: 82 Sex: M Location: EMERGENCY DEPARTMENT Exam Date: 02/09/182038 ADM Status: [facility] ER Order Information: CT BRAIN WO Accession Number: [id number] CPT: 00680 Indication: Confusion. CT of the brain was performed without IV contrast. Ventricular structures are midline. No midline shift is noted. There is central and cortical atrophy noted. There is no evidence of intracranial mass or hemorrhage. There is wedge-shaped defect in the left parietal lobe consistent with old infarct. There is no evidence of intracranial mass or hemorrhage. No other high or low density lesions are identified. Mastoid air cells and paranasal sinuses are unremarkable. Patient has had left craniotomy. IMPRESSION: No intracranial mass or hemorrhage. 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 <Electronically signed by Tanvi Rivero MD in [place]> 02/09/182202 Dictated By: Tanvi Rivero MD Dictated Date/Time: 02/09/182202 Transcribed Date/Time: 02/09/182152 Copy to: Assess/Plan/Problems-Billing Assessment: This is an 82 year old male patient with history of CABG, TAVR, HTN, DM and hemorrhagic CVA that presented to the ER with complaint of dizziness and near syncope, nausea and atypical chest pain for which he took NTGx2 at home that has been admitted for same. - Patient Problems (1) Near syncope Comment: - Obtained records from Dr. Ware, no change on ECHO, EF is 55-60%, Holter should bigeminy and PVCs, not dissimilar to telemetry here. Briefly discussed with Dr. Hansen who agrees that medical optimization and management are warranted. Will defer on stress test and follow up outpatient cardiology. - Will MRI brain, as patient had syncopal episode 2 months ago and did not have MRI which was recommended at that time - Mag level remains low. 1 gram yesterday, will give 2 gram today and continue slo-mag to reduce ventricular ectopy. No vTach noted on this admission - Discussed care with Dr. Laguna given encephalomalacia on MRI - No acute infarcts noted on imaging above (2) History of coronary artery bypass graft Comment: - Continue coreg BID, ASA and statin (3) S/P TAVR (transcatheter aortic valve replacement) Code(s): Z95.2 - PRESENCE OF PROSTHETIC HEART VALVE SNOMED Code(s): 7082763842924 Comment: - valve with good placement on last ECHO (4) History of intracranial hemorrhage Code(s): Z86.79 - PERSONAL HISTORY OF OTHER DISEASES OF THE CIRCULATORY SYSTEM SNOMED Code(s): 135943196 Comment: - With syncope, progressive confusion and dizziness at this admission - CT and MRI as above - Appreciate recs from neuro (5) Hypertension Code(s): I10 - ESSENTIAL (PRIMARY) HYPERTENSION SNOMED Code(s): 33716661 Comment: - Continue ramipril (6) DVT prophylaxis Code(s): KIO8719 - SNOMED Code(s): 876785047 Comment: - HSQ (7) Full code status Code(s): Z78.9 - OTHER SPECIFIED HEALTH STATUS SNOMED Code(s): 221815562 Status and Disposition: Remain inpatient. Does not need stress, appreciate input from neurology.
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
[2018-02-12] MEDS: Insulin LISPRO* 1 UNITS UNIT SUBCUT SCH ×6 (00:54→20:49)
[2018-02-12] MEDS: NS 0.9% 1000 ML* 1,000 ML IV SCH ×2 (01:24→22:24)
[2018-02-12] MEDS: Heparin VIAL(*) 5000 UNITS/ML VIAL (FIVE THOUSAND) SUBCUT SCH ×3 (06:25→20:39)
[2018-02-12] MEDS: Omeprazole CAP* 20 MG PO SCH (06:25)
[2018-02-12] MEDS ORDERED: Magnesium Oxide TAB* 400 MG PO SCH (09:00)
[2018-02-12] MEDS: Atorvastatin* 20 MG TAB PO SCH (09:55)
[2018-02-12] MEDS: glipiZIDE TAB* 5 MG PO SCH ×2 (09:55→20:39)
[2018-02-12] MEDS: Aspirin EC TAB* 81 MG TAB.EC PO SCH (09:55)
[2018-02-12] MEDS: Ascorbic Acid TAB* 500 MG PO SCH (09:55)
[2018-02-12] MEDS: Ramipril CAP* 5 MG PO SCH (09:56)
[2018-02-12] MEDS: Docusate CAP* 100 MG PO SCH ×2 (09:56→20:39)
[2018-02-12] MEDS: Carvedilol TAB* 6.25 MG PO SCH ×2 (09:56→20:39)
[2018-02-12] MEDS: Tamsulosin CAP* 0.4 MG PO SCH (09:56)
[2018-02-12] MEDS ORDERED: Magnesium Sulfate 2 GM IV* 2 GM/50 ML BAG IVPB ONE (16:55)
[2018-02-12] MEDS ORDERED: Magnesium Sulfate 1 GM IV* 1 GM/100 ML BAG IV ONE (17:00)
[2018-02-12] MEDS: Cyanocobalamin TAB* 500 MCG PO SCH (17:55)
--- NOTE | 2018-02-12 18:01 | PN ---
Subjective Date of Service: 02/12/18 Interval History: Patient was seen and examined at bedside. Reports feeling well today, denies any c/o. No headaches, dizziness, visual changes, weakness or numbness. Just had his EEG done this afternoon. He expressed desire to go home soon if "all tests are negative". Has been ambulatory, eating better, although still thinks his appetite has been off lately. Family History: Unchanged from Admission Social History: Unchanged from Admission Past Medical History: Unchanged from Admission Objective Active Medications: Acetaminophen (Tylenol Tab*) 650 mg PO Q6H PRN PRN Reason: FEVER/PAIN Albuterol (Ventolin 2.5 Mg/3 Ml Neb.Jada*) 2.5 mg INH Q2H PRN PRN Reason: SOB/WHEEZING Ascorbic Acid (Vitamin C Tab*) 500 mg PO DAILY [facility] Last Admin: 02/12/18 09:55 Dose: 500 mg Aspirin (Aspirin Ec Tab*) 81 mg PO DAILY [facility] Last Admin: 02/12/18 09:55 Dose: 81 mg Atorvastatin Calcium (Lipitor*) 20 mg PO DAILY [facility] Last Admin: 02/12/18 09:55 Dose: 20 mg Carvedilol (Coreg Tab*) 6.25 mg PO BID [facility] Last Admin: 02/12/18 09:56 Dose: 6.25 mg Cyanocobalamin (Vitamin B12 Tab*) 1,000 mcg PO DAILY [facility] Docusate Sodium (Colace Cap*) 200 mg PO BID [facility] Last Admin: 02/12/18 09:56 Dose: 200 mg Glipizide (Glucotrol Tab*) 5 mg PO BID [facility] Last Admin: 02/12/18 09:55 Dose: 5 mg Heparin Sodium (Porcine) (Heparin Vial(*)) 5,000 units SUBCUT Q8HR [facility] Last Admin: 02/12/18 13:07 Dose: 5,000 units Sodium Chloride (Ns 0.9% 1000 Ml*) 1,000 mls @ 50 mls/hr IV PER RATE [facility] Last Admin: 02/12/18 01:24 Dose: 50 mls/hr Insulin Human Lispro (Humalog*) 0 units SUBCUT Q4H [facility] PRN Reason: Protocol Last Admin: 02/12/18 17:54 Dose: 2 units Magnesium Oxide (Magox 400 Tab*) 400 mg PO EVERY OTHER DAY [facility] Last Admin: 02/12/18 09:55 Dose: 400 mg Melatonin (Melatonin (Nf)) 3 mg PO BEDTIME PRN; Protocol PRN Reason: Sleep Morphine Sulfate (Morphine Vial*) 2 mg IV Q4H PRN PRN Reason: PAIN Omeprazole (Prilosec Cap*) 20 mg PO DAILY@0600 [facility] Last Admin: 02/12/18 06:25 Dose: 20 mg Ondansetron HCl (Zofran Odt Tab*) 4 mg PO Q6H PRN PRN Reason: n/v Last Admin: 02/11/18 13:14 Dose: 4 mg Ramipril (Altace Cap*) 5 mg PO DAILY [facility] Last Admin: 02/12/18 09:56 Dose: 5 mg Tamsulosin HCl (Flomax Cap*) 0.4 mg PO DAILY [facility] Last Admin: 02/12/18 09:56 Dose: 0.4 mg Vital Signs - 8 hr 02/12/18 02/12/18 11:43 15:43 Temperature 98.0 F 98.1 F Pulse Rate 41 50 Respiratory 16 16 Rate Blood Pressure 147/48 146/54 (mmHg) O2 Sat by Pulse 98 96 Oximetry Oxygen Devices in Use Now: None Appearance: Appears comfortable and in NAD. and son in room visiting. Eyes: No Scleral Icterus, PERRLA Ears/Nose/Mouth/Throat: Clear Oropharnyx, Mucous Membranes Moist Neck: NL Appearance and Movements; NL JVP, Trachea Midline Respiratory: Symmetrical Chest Expansion and Respiratory Effort, Clear to Auscultation Cardiovascular: NL Sounds; No Murmurs; No JVD, RRR Abdominal: NL Sounds; No Tenderness; No Distention Extremities: No Edema, No Clubbing, Cyanosis Skin: No Rash or Ulcers Neurological: Alert and Oriented x 3, NL Sensation, NL Muscle Strength and Tone Nutrition: Taking PO's Result Diagrams: 02/09/18 22:08 02/10/18 04:47 Additional Lab and Data: . Microbiology and Other Data: . Diagnostic Imaging: MRI BRAIN: Patient Name: BRITT REYES Medical Record#: [id number] Ordering Physician: Cristina Meier NP Acct.#: [id number] : 1935 Age: 82 Sex: M Location: [address] [place] [address]/TELEMETRY Exam Date: 02/10/18 122 ADM Status: ADM IN Order Information: MRI BRAIN W/O Accession Number: [id number] CPT: 07177 HISTORY: Near syncope, history of stroke with ICH and craniotomy COMPARISONS: February 09, 2018 PET/CT IMPRESSION: 1. 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 2. NO RESTRICTED DIFFUSION TO SUGGEST ACUTE INFARCT.. CT BRAIN: Patient Name: BRITT REYES Medical Record#: [id number] Ordering Physician: Henrry Pedroza MD Acct.#: [id number] : 1935 Age: 82 Sex: M Location: EMERGENCY DEPARTMENT Exam Date: 02/09/182038 ADM Status: REG ER Order Information: CT BRAIN WO Accession Number: [id number] CPT: 18215 Indication: Confusion. CT of the brain was performed without IV contrast. IMPRESSION: No intracranial mass or hemorrhage. 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 <Electronically signed by Tanvi Rivero MD in [place]> 02/09/182202 Dictated By: Tanvi Rivero MD Dictated Date/Time: 02/09/182202 Transcribed Date/Time: 02/09/182152 EKG Data: . Assess/Plan/Problems-Billing Assessment: This is an 82 year old male patient with history of CABG, TAVR, HTN, DM and hemorrhagic CVA that presented to the ER with complaint of dizziness and near syncope, nausea and atypical chest pain for which he took NTGx2 at home that has been admitted for same. - Patient Problems (1) Near syncope Current Visit: Yes Status: Acute Priority: High Comment: - Obtained records from Dr. Ware, no change on ECHO, EF is 55-60%, Holter showed bigeminy and PVCs, continues to have the same in telemetry here. Briefly discussed with Dr. Hansen who agrees that medical optimization and management are warranted. Will defer on stress test and follow up outpatient cardiology. - Brain CT and MRI reports attached, no acute findings. - Mag level remains low. 2 gram yesterday, will give and additional 1 gram today and continue slo-mag to reduce ventricular ectopy. No vTach noted on this admission - Discussed care with Dr. Laguna given encephalomalacia on MRI. She will read EEG and provide her recommendations. Neuro consult appreciated. - No acute infarcts noted on imaging above (2) History of intracranial hemorrhage Current Visit: No Status: Chronic Comment: - With syncope, progressive confusion and dizziness at this admission - CT and MRI as above - Again, no evidence of acute intracranial hemorrhage or infarct. (3) History of coronary artery bypass graft Current Visit: Yes Status: Chronic Comment: - Continue coreg BID, ASA and statin (4) Hypertension Current Visit: Yes Status: Acute Comment: - Continue ramipril (5) S/P TAVR (transcatheter aortic valve replacement) Current Visit: No Status: Chronic Comment: - valve with good placement on last ECHO (6) DVT prophylaxis Current Visit: Yes Status: Acute Comment: - Heparin subQ (7) Full code status Current Visit: Yes Status: Acute Status and Disposition: Remain inpatient. No need for stress test during this admission. Await neurology input regarding EEG. If no focal seizure activities, will likely to dicharge home in AM 02/13/2018
--- NOTE | 2018-02-12 23:59 | PN ---
CC: Diallo Maya NP * PROGRESS NOTE: DATE OF FOLLOWUP: 02/12/18 HISTORY: No acute overnight events. The patient reports that he feels good today. On my evaluation this afternoon, his son was present, but his was not. He had EEG this afternoon and his blood work is back as well. MEDICATIONS: His list was reviewed and this list is not exhaustive, but includes: 1. Ramipril 5 mg daily. 2. Omeprazole 20 mg daily. 3. Melatonin 3 mg at bedtime. 4. Glipizide 5 mg twice daily. 5. Carvedilol 6.25 mg b.i.d. 6. Atorvastatin 20 mg daily. 7. Aspirin 81 mg daily. PHYSICAL EXAMINATION: Vital Signs: Temperature 98 degrees, blood pressure 147/ 48, heart rate 41, oxygen saturation 98% on room air. The patient was not formally reexamined today. On observation, he was lying on his left side, in no acute distress. His vitals were being taken by the aide on the floor. He again interacted minimally with the examiner. His face is symmetric. His speech is clear. He moves all extremities with equal strength. LABORATORY DATA: Ammonia 48, vitamin B12 204, folate 9.92, TSH 3.54, and free T4 of 1.18, which is slightly high. His EEG was reviewed and the formal report is pending, but the background showed appropriate organization with a slightly slow posterior rhythm of 7 to 8 Hz with periods of delta slowing, which were sometimes bifrontally predominant, but often had a predominance to the left hemisphere and particularly the left temporal region and sometimes into the paracentral region. Some of this higher amplitude slowing and faster frequency activity is related to breach artifact. There were no epileptiform discharges. IMPRESSION: An 82-year-old man with a past history of traumatic brain injury, being seen for episodes of confusion as well as some memory difficulties. His EEG demonstrates findings attributable to his known old brain injury and no clear epileptiform discharges. His vitamin B12 level is likely a little bit low for him and I've methylmalonic acid, but recommend that he start on a 1000 mcg daily replacement. This could be influencing his cognitive changes. At this point, I do not see any clear evidence of intermittent seizure and again I wonder more about a dementing process in this man. This would be better evaluated in the outpatient setting if the primary care physician feels this is appropriate. If I can be of further assistance during Mr. Patterson' hospitalization, please do not hesitate to contact me. [id number]/[facility] #: [id number] JD
[2018-02-13] MEDS: Insulin LISPRO* 1 UNITS UNIT SUBCUT SCH ×4 (01:50→12:58)
[2018-02-13 05:11] LABS: ABS Basophils 0.1 10^3/ul (0-0.2); ABS Eosinophils 0.1 10^3/ul (0-0.6); ABS Monocytes 0.5 10^3/ul (0-0.8); ABS Neutrophils 2.5 10^3/ul (1.5-7.7); ABS Nucleated RBC 0 10^3/ul; Eosinophil % 2.7 % (0-6); Hematocrit 38 % (42-52); Hemoglobin 12.9 g/dl (14.0-18.0); Lymphocyte % 38.2 % (25-47); Mean Corpuscular HGB Conc 34 g/dl (31-36); Mean Corpuscular Hemoglobin 30 pg (27-31); Mean Corpuscular Volume 88 fL (80-94); Mean Platelet Volume 8.8 um3 (7.4-10.4); Nucleated Red Blood Cells % 0.1; Platelet Count 137 10^3/ul (150-450); Red Blood Count 4.28 10^6/ul (4.0-5.4); Red Cell Distribution Width 15 % (10.5-15); White Blood Count 5.1 10^3/ul (3.5-10.8)
[2018-02-13 05:24] LABS: EGFR Non-African American 86.7 (>60)
[2018-02-13] MEDS: Heparin VIAL(*) 5000 UNITS/ML VIAL (FIVE THOUSAND) SUBCUT SCH ×2 (05:51→12:59)
[2018-02-13] MEDS: Omeprazole CAP* 20 MG PO SCH (05:51)
[2018-02-13] MEDS: Docusate CAP* 100 MG PO SCH (08:47)
[2018-02-13] MEDS: glipiZIDE TAB* 5 MG PO SCH (08:52)
[2018-02-13] MEDS: Tamsulosin CAP* 0.4 MG PO SCH (08:52)
[2018-02-13] MEDS: Ramipril CAP* 5 MG PO SCH (08:52)
[2018-02-13] MEDS: Cyanocobalamin TAB* 500 MCG PO SCH (08:52)
[2018-02-13] MEDS: Atorvastatin* 20 MG TAB PO SCH (08:52)
[2018-02-13] MEDS: Ascorbic Acid TAB* 500 MG PO SCH (08:52)
[2018-02-13] MEDS: Aspirin EC TAB* 81 MG TAB.EC PO SCH (08:52)
[2018-02-13] MEDS: Carvedilol TAB* 6.25 MG PO SCH (08:52)
[2018-02-13 16:00] VITALS: BP 149/55
--- NOTE | 2018-02-14 10:15 | EEG ---
ELECTROENCEPHALOGRAPHY: DATE OF STUDY: 02/12/2018. LOCATION: The patient is an inpatient. REQUESTING PHYSICIAN: Katie Laguna MD. HISTORY: This is an 82-year-old man with a history of TBI, with left parietal hemorrhage, status pos t craniotomy about 30 years ago. He was brought into the hospital for an episode of possible chest p ain associated with staring and unusual behavior. Recently, his feels, he has not been acting l keke himself. EEG is requested to evaluate for epileptiform abnormalities. MEDICATIONS: 1. Zofran. 2. Morphine. 3. Melatonin. 4. Ventolin. 5. Magnesium oxide. 6. Tylenol. 7. Flomax. 8. Altace. 9. Lipitor. 10. Aspirin 81 mg. 11. Vitamin C. 12. Prilosec. 13. Heparin. 14. Glucotrol. 15. Colace. 16. Coreg. 17. Humalog. DESCRIPTION: The most notable feature of the EEG was the presence of intermittent delta slowing. Th ere were 1 to 2 second epochs of frontally predominant intermittent rhythmic delta activity (FIRDA). In addition, there were other periods of greater proportion of polymorphic delta and theta range slo wing, which was preferentially expressed over the left temporal and parietal regions where there were also higher amplitudes and some faster frequency rhythms noted in the left temporal region. The hig her amplitudes and faster frequency rhythms were likely related to breach effect. Within this left t emporal region there were some sharply contoured features, but in the context of the breach rhythm, t hese were not definitely epileptiform in nature. Otherwise, the waking background showed appropriate organization, with clearly defined anterior to po sterior voltage and frequency gradients. There was a well defined posterior dominant rhythm of 7-8 H z, which was symmetrical and showed normal reactivity. Anteriorly there was an expected pattern of l ower voltage, irregular, mixed faster frequencies. Throughout the recording, there were no definite epileptiform discharges. IMPRESSION: This is an abnormal waking EEG due to the presence of a mildly slow posterior dominant r hythm, FIRDA, as well as superimposed excessive slowing in the left temporal and central parietal reg ions. Overall, these findings are suggestive of a mild, nonspecific, diffuse encephalopathy, with giron perimposed excessive neuronal dysfunction in the left hemisphere, in particular affecting the tempora l and central parietal regions. There are no definite epileptiform abnormalities. [id number]/[facility] #: [id number]
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
== END 2018-02-13 16:08 | disposition home or self-care (01) | DRG 313 ==
LOC: ED 20:19 → MEDTELE 02-10 01:59 → OBSVTOIN 02-10 12:55 → MEDTELE 02-12 09:39
PROVIDERS: ADMIT Hospitalist; ATTEND Student in an Organized Health Care Education/Training Program
DX: R07.89 Other chest pain (principal); R55 Syncope and collapse; I25.10 Atherosclerotic heart disease of native coronary artery without angina pectoris; I11.9 Hypertensive heart disease without heart failure; E11.9 Type 2 diabetes mellitus without complications; E78.5 Hyperlipidemia, unspecified; G93.89 Other specified disorders of brain; Z95.5 Presence of coronary angioplasty implant and graft; Z95.1 Presence of aortocoronary bypass graft; Z95.3 Presence of xenogenic heart valve; Z87.820 Personal history of traumatic brain injury; Z79.2 Long term (current) use of antibiotics; Z79.84 Long term (current) use of oral hypoglycemic drugs; Z79.82 Long term (current) use of aspirin; Z79.4 Long term (current) use of insulin; Z79.899 Other long term (current) drug therapy
CPT/HCPCS: 36415; 70450; 70551; 71045; 80048; 80053; 82140; 82607; 82746; 83036; 83605; 83735; 83921; 84439; 84443; 84484; 85025; 85610; 85730; 93005; 95816; 99285; A9270-GY; G8978-GP-CH; G8979-GP-CH; G8980-GP-CH; J1644; J3475

== ENCOUNTER 2019-09-06 10:54 | Day surgery (SDC) | payer MEDICARE ==
[2019-09-06 11:42] LABS: ABS Eosinophils 0.1 10^3/ul (0-0.6); ABS Lymphocytes 1.7 10^3/ul (1.0-4.8); ABS Monocytes 0.5 10^3/ul (0-0.8); ABS Neutrophils 3.1 10^3/ul (1.5-7.7); Eosinophil % 1.2 %; Hematocrit 40 % (42-52); Hemoglobin 13.4 g/dL (14.0-18.0); Lymphocyte % 31.3 %; Mean Corpuscular HGB Conc 34 g/dL (31-36); Mean Corpuscular Hemoglobin 29 pg (27-31); Mean Corpuscular Volume 86 fL (80-94); Mean Platelet Volume 8.1 fL (7.4-10.4); Nucleated Red Blood Cells % 0.3; Platelet Count 189 10^3/uL (150-450); Red Blood Count 4.59 10^6 /uL (4.18-5.48); Red Cell Distribution Width 17 % (10-15); White Blood Count 5.4 10^3/uL (3.5-10.8)
[2019-09-06 11:45] LABS: INR 1.15 (0.82-1.09)
[2019-09-06] MEDS ORDERED: LORazepam TAB(*) 0.5 MG PO ONE (12:00)
[2019-09-06] MEDS ORDERED: ceFAZolin 1 GM* X ONE DOSE (AddVan) IVPB ×2 (12:00)
[2019-09-06] MEDS ORDERED: LORazepam TAB(*) 1 MG ONE (12:47)
[2019-09-06] MEDS ORDERED: Heparin 2 UNITS/ML IVPREMIX* 2,000 ML IV ONE (13:12)
[2019-09-06] MEDS ORDERED: Lidocaine 1% INJ* 10 MG/ML 30 ML SDV ONE (13:12)
[2019-09-06] MEDS ORDERED: Iohexol 350 (CONTRAST) 200 ML MDV IV ONE ×2 (13:12→13:55)
[2019-09-06] MEDS ORDERED: Midazolam* 1 MG/ML 5 ML VIAL (5 MG) ONE (13:12)
[2019-09-06] MEDS ORDERED: Heparin(*) 1000 UNIT/ML 10 ML VIAL CATH LAB IV ONE (13:12)
[2019-09-06] MEDS ORDERED: fentaNYL* 50 MCG/ML 2 ML VIAL (100 MCG VIAL) ONE ×2 (13:12→14:17)
[2019-09-06] MEDS ORDERED: Metoprolol Tartrate IV* 1 MG/ML 5 ML VIAL ONE (13:51)
[2019-09-06] MEDS ORDERED: NS 0.9% 1000 ML** 1,000 ML IV SCH (15:45)
[2019-09-06] MEDS ORDERED: Clopidogrel TAB* 300 MG PO ONE ×2 (16:00)
[2019-09-06] MEDS ORDERED: Clopidogrel TAB* 75 MG PO ONE (16:00)
[2019-09-06 17:45] VITALS: BP 145/85
== END 2019-09-06 17:50 | disposition home or self-care (01) ==
LOC: CHICATH 10:54
PROVIDERS: ATTEND Radiology Diagnostic Radiology
DX: I70.213 Atherosclerosis of native arteries of extremities with intermittent claudication, bilateral legs (principal); E11.9 Type 2 diabetes mellitus without complications; Z79.4 Long term (current) use of insulin; Z79.84 Long term (current) use of oral hypoglycemic drugs; E66.9 Obesity, unspecified; Z68.30 Body mass index [BMI] 30.0-30.9, adult; I25.10 Atherosclerotic heart disease of native coronary artery without angina pectoris; I10 Essential (primary) hypertension; E78.5 Hyperlipidemia, unspecified
CPT/HCPCS: 36415; 75736; 76937; 85025; 85347; 85610; 99156; 99157; A9270-GY; C1725; C1760; C1769; C1874; C1887; C1894; J0690; J1644; J2250; J3010; J3490